=== PATIENT | female | born 1985 | race Two or more races ===

== ENCOUNTER 2022-10-12 15:34 | Emergency (ER) | payer MEDICAID, OTHER ==
[~2022-10-12] VITALS: Ht 172.7 cm; Wt 117.6 kg
[2022-10-12] MEDS ORDERED: SODIUM CHLORIDE 0.9% 1,000 ML IV ONE (15:45)
[2022-10-12 16:03] LABS: Basophils # (auto) 0 10 ^3/uL (0-0.2); Basophils % (auto) 0.2 % (0.0-2.0); Eosinophils # (auto) 0 10 ^3/uL (0-0.8); Eosinophils % (auto) 0.1 % (0.0-7.0); Hematocrit 41.7 % (36.0-46.0); Hemoglobin 13.7 g/dL (12.2-16.2); Lymphocytes # (auto) 1.6 10 ^3/uL (0.4-5.4); Lymphocytes % (auto) 14.2 % (10.0-50.0); Mean Corpuscular Hemoglobin 27.3 pg (28.0-32.0); Mean Corpuscular Hgb Conc. 32.8 g/dL (32.0-36.0); Mean Corpuscular Volume 83.1 fL (80.0-100.0); Monocytes # (auto) 0.5 10 ^3/uL (0-1.3); Monocytes % (auto) 4.2 % (0.0-12.0); Neutrophils % (auto) 81.3 % (37.0-80.0); Nucleated Red Blood Cells % 0.1 %; Red Blood Cells 5.02 10^6/uL (4.0-5.20); Red Cell Distribution Width 13.4 % (11.8-14.3); White Blood Cell 11.1 10^3/uL (4.4-10.8)
[2022-10-12 16:11] LABS: Urine Bacteria NONE SEEN /hpf (None Seen); Urine Blood 3+ /uL (Negative); Urine Mucus FEW (None Seen); Urine WBC 5 /hpf (0 - 5)
[2022-10-12] MEDS ORDERED: ONDANSETRON HCL 4 MG/2 ML VIAL IV ONE (16:15)
[2022-10-12 16:18] LABS: Albumin 3.8 g/dL (3.4-5.0); BUN/Creatinine Ratio 21.4; Calcium 9.2 mg/dL (8.5-10.1); Potassium 3.6 mmol/L (3.5-5.1)
[2022-10-12 16:21] LABS: Bilirubin, Total 0.4 mg/dL (0.2-1.0)
[2022-10-12] MEDS ORDERED: NITR-87 PO (16:37)
[2022-10-12] MEDS ORDERED: ONDA-144 PO (16:38)
[2022-10-12] MEDS ORDERED: cefTRIAXone 1GM/50ML D5W 50 ML IV ONE (16:45)
[2022-10-12] MEDS ORDERED: HYDROcodone-ACET 5/325MG TAB PO ONE (17:15)
[2022-10-12 17:55] VITALS: BP 125/76
== END 2022-10-12 17:58 | disposition home or self-care (01) ==
LOC: ER 15:35
DX: K52.9 Noninfective gastroenteritis and colitis, unspecified (principal); N39.0 Urinary tract infection, site not specified; Z90.49 Acquired absence of other specified parts of digestive tract; Z88.6 Allergy status to analgesic agent
CPT/HCPCS: 36415; 74176; 80053; 81001; 84702; 85025; 96361; 96365; 96375; 99285; J0696; J2405; J7030

== ENCOUNTER 2023-04-29 18:18 | Emergency (ER) | payer MEDICAID, OTHER ==
[~2023-04-29] VITALS: Ht 175.3 cm; Wt 117.6 kg
[~2023-04-29 18:18] MED LIST: NITR-87 PO; ONDA-144 PO
[2023-04-29 20:28] LABS: Urine Bacteria FEW /hpf (None Seen); Urine Blood Negative /uL (Negative); Urine Clarity HAZY (Clear); Urine Color Yellow (Yellow); Urine Mucus FEW (None Seen); Urine Protein, UAD TRACE (Negative); Urine Specific Gravity 1.026 (1.001-1.035); Urine WBC 16 /hpf (0 - 5)
[2023-04-29] MEDS ORDERED: KETOROLAC TROMETH 60MG/2ML VIAL IM ONE (22:15)
[2023-04-29] MEDS ORDERED: SULF800T23 PO (22:35)
[2023-04-29] MEDS ORDERED: IBUP-1456 PO (22:35)
[2023-04-29] MEDS ORDERED: CYCL-837 PO (22:35)
[2023-04-29 23:14] VITALS: BP 111/63; PULSE 69; RESP 18; TEMP 98.1; O2SAT 98
== END 2023-04-29 23:37 | disposition home or self-care (01) ==
LOC: ER 18:18
DX: S39.012A Strain of muscle, fascia and tendon of lower back, initial encounter (principal); N39.0 Urinary tract infection, site not specified; Z90.49 Acquired absence of other specified parts of digestive tract; Z79.1 Long term (current) use of non-steroidal anti-inflammatories (NSAID); Z79.899 Other long term (current) drug therapy; W07.XXXA Fall from chair, initial encounter; Y93.89 Activity, other specified; Y92.89 Other specified places as the place of occurrence of the external cause; Y99.8 Other external cause status
CPT/HCPCS: 72100; 72220; 81001; 81025; 96372; 99284; J1885